=== PATIENT | female | born 1990 | race Caucasian/White ===

== ENCOUNTER 2018-01-09 15:45 | Emergency (ER) | payer BC ==
[2018-01-09 16:43] VITALS: BP 111/66
--- NOTE | 2018-01-09 17:59 | UC ---
Respiratory Complaint HPI - HPI Summary HPI Summary: Per medicine assistant "Dry cough for 2-3 days, body aches; temp 100 today, CP worsens with cough" -she is here w/ her BF Trung + h/o PEs during . lovenox dc'd 2013. -she insists that this has nothing to do w/ having PE. sx are completely different. she reports she has no chest pain at rest or even with deep breath, only with deep cough. + h/o childhood asthma. no fevers. no chills. + stuffy nose, nasal congestion. would not have come in if it were not for these severe coughing. -She has copper IUD, denies . just had period -denies any swelling in legs. no recent surgery or long trips. 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 "I promise you, it's not a blood clot" - History of Current Complaint Chief Complaint: UCRespiratory Stated Complaint: COUGH/FEVER Time Seen by Provider: 01/09/18 17:56 Hx Last Menstrual Period: 01/06/18 Pain Intensity: 5 - Allergies/Home Medications Allergies/Adverse Reactions: Allergies Allergy/AdvReac Type Severity Reaction Status Date / Time No Known Allergies Allergy Verified 01/09/18 16:43 Home Medications: Home Medications Chlorphenir/Phenyleph/Aspirin [Tereza-Stigler Plus Cold Tab Eff] 2 tab PO Q4H PRN 01/09/18 [History Confirmed 01/09/18] Ibuprofen TAB* [Motrin TAB* 400 MG] 400 mg PO ONCE PRN 01/09/18 [History Confirmed 01/09/18] PMH/Surg Hx/FS Hx/Imm Hx Previously Healthy: Yes - Surgical History Surgical History: Yes Surgery Procedure, Year, and Place: appy, tonsils; blood clots in lungs related to 2012- pt stopped lovenox 2013 - Family History Known Family History: Positive: Other - no FHx DVTs/PEs or genetic predisposition - Social History Alcohol Use: Occasionally Substance Use Type: None Smoking Status (MU): Light Every Day Tobacco Smoker Review of Systems Constitutional: Negative Skin: Negative Eyes: Negative ENT: Negative Respiratory: Negative Cardiovascular: Negative Gastrointestinal: Negative Genitourinary: Negative Motor: Negative Neurovascular: Negative Musculoskeletal: Negative Neurological: Negative Psychological: Negative Is Patient Immunocompromised?: No All Other Systems Reviewed And Are Negative: Yes Physical Exam Triage Information Reviewed: Yes Appearance: Ill-Appearing - mild-moderate. + signfiicant nasal congestion. Vital Signs: Initial Vital Signs Temp 98.7 F 01/09/18 16:31 Pulse 84 01/09/18 16:31 Resp 18 01/09/18 16:31 BP 111/66 01/09/18 16:31 Pulse Ox 99 01/09/18 16:31 Eye Exam: Normal Eyes: Positive: Conjunctiva Clear ENT: Positive: Pharyngeal erythema - mild w/ + PND, no exudate., Nasal congestion, Nasal drainage, TMs normal, Hoarse voice. Negative: Sinus tenderness Dental Exam: Normal Neck exam: Normal Neck: Positive: Supple, Nontender, No Lymphadenopathy Respiratory: Positive: Lungs clear, Normal breath sounds, No respiratory distress, No accessory muscle use, Decreased breath sounds, Other: - s/p neb, increased breath sounds and no cough induced w/ deep breath. Negative: Crackles , Rhonchi, Stridor, Wheezing Cardiovascular: Positive: RRR, No Murmur, Pulses Normal Abdomen Description: Positive: Nontender, Soft Musculoskeletal Exam: Normal Musculoskeletal: Positive: Other: - no leg swelling or erythema Neurological Exam: Normal Psychological Exam: Normal Skin Exam: Normal UC Diagnostic Evaluation - Laboratory O2 Sat by Pulse Oximetry: 99 Respiratory Course/Dx - Course Course Of Treatment: albuterol neb done here provides significant relief in breathing and cough. she reporst no chest pain w/ deep cough s/p neb. -EKG - NSR, no s1 Q3, inv T 3 pattern - Differential Dx/Diagnosis Differential Diagnosis/HQI/PQRI: Asthma, Bronchitis, Laryngitis, Lower Resp Infection, Sinusitis Provider Diagnoses: Bronchitis Discharge - Sign-Out/Discharge Documenting (check all that apply): Patient Departure All imaging exams completed and their final reports reviewed: No - Discharge Plan Condition: Stable Disposition: HOME Prescriptions: Albuterol HFA INHALER* [Ventolin HFA Inhaler*] 2 puff INH Q4H PRN 14 Days #1 mdi PRN Reason: Cough methylPREDNISolone [Medrol Dosepak 4 MG*] 4 mg PO DAILY #1 perri Spacer/Holding Chamber (NF) [Easivent CHAMBER (NF)] 1 unit INH Q4HR 14 Days #1 device Patient Education Materials: Acute Bronchitis (ED) Referrals: No Primary Care Phys,NOPCP [Primary Care Provider] - Additional Instructions: Follow up with your PCP in 5 days at [facility]. -We discussed risks of prednisone including but not limited to anxiety, agitation, insomnia, GI upset, elevated blood pressures and blood sugar readings , adrenal crisis and avascular necrosis of the hip. -You should go to the ER with worsening pain, shortness of breath or swelling in your legs - Billing Disposition and Condition Condition: STABLE Disposition: Home
[2018-01-09] MEDS: Albuterol 2.5 MG/3 ML NEB.SOL* (0.083%) INH ONE (18:10)
--- NOTE | 2018-01-10 13:41 | UC ---
Discharge - Sign-Out/Discharge Documenting (check all that apply): Post-Discharge Follow Up All imaging exams completed and their final reports reviewed: No Studies - Discharge Plan Condition: Stable Disposition: HOME Prescriptions: Albuterol HFA INHALER* [Ventolin HFA Inhaler*] 2 puff INH Q4H PRN 14 Days #1 mdi PRN Reason: Cough methylPREDNISolone [Medrol Dosepak 4 MG*] 4 mg PO DAILY #1 perri Spacer/Holding Chamber (NF) [Easivent CHAMBER (NF)] 1 unit INH Q4HR 14 Days #1 device Patient Education Materials: Acute Bronchitis (ED) Referrals: No Primary Care Phys,NOPCP [Primary Care Provider] - Additional Instructions: Follow up with your PCP in 5 days at [facility]. -We discussed risks of prednisone including but not limited to anxiety, agitation, insomnia, GI upset, elevated blood pressures and blood sugar readings , adrenal crisis and avascular necrosis of the hip. -You should go to the ER with worsening pain, shortness of breath or swelling in your legs - Billing Disposition and Condition Condition: STABLE Disposition: Home
== END 2018-01-09 18:37 | disposition home or self-care (01) ==
LOC: UCCORT 15:45
DX: J40 Bronchitis, not specified as acute or chronic (principal); F17.210 Nicotine dependence, cigarettes, uncomplicated
CPT/HCPCS: 93005; 99202; G0463

== ENCOUNTER 2019-04-02 20:24 | Emergency (ER) | payer SELFPAY ==
[2019-04-02 20:40] VITALS: BP 120/68
--- NOTE | 2019-04-02 20:57 | UC ---
Cardiac HPI - HPI Summary HPI Summary: Pt presents with c/o right side mid medial scapular pain that began 1 day ago. Pt denies injury or overuse. Pt also reports that last night she woke from sleep with epigastric pain that pt described a a"gas bubble". Pt reports that she woke from sleep then drank a glass of water, rested calmly and then pain resolved. Pt has hx of PE's that occurred during 5 years ago. 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 Pt denies chest pain at time of PE, denies SOB, denies difficulty breathing, nausea , vomiting or left arm pain. - History of Current Complaint Chief Complaint: UCUpperExtremity Stated Complaint: RIGHT SHOULDER PAIN Time Seen by Provider: 04/02/19 20:33 Hx Obtained From: Patient Hx Last Menstrual Period: copper IUD; 03/03/19 Onset/Duration: Sudden Onset - epigastric pain, Gradual Onset - right shoulder mid back scapular pain Timing: Constant - right upper back Initial Severity: Mild Current Severity: Mild Pain Intensity: 5 Chest Pain Location: Lower Sternal Character: Burning Aggravating Factor(s): Nothing Alleviating Factor(s): Rest, Other - drank water Associated Signs & Symptoms: Positive: Back Pain, Abdominal Pain - Risk Factors Pulmonary Embolism Risk Factors: Previous PE Cardiac Risk Factors: Negative Atrial Fibrillation: Negative TAD Risk Factors: Negative - Allergy/Home Medications Allergies/Adverse Reactions: Allergies Allergy/AdvReac Type Severity Reaction Status Date / Time No Known Allergies Allergy Verified 04/02/19 20:34 Home Medications: Home Medications Copper (Iud) [Paragard IUD] 1 implant ONCE 04/02/19 [History Confirmed 04/02/19] PMH/Surg Hx/FS Hx/Imm Hx Previously Healthy: Yes - Surgical History Surgical History: Yes Surgery Procedure, Year, and Place: appy, tonsils; blood clots in lungs related to 2012- pt stopped lovenox 2013 - Family History Known Family History: Positive: Other - no FHx DVTs/PEs or genetic predisposition past FMH of cholecystitis - Social History Occupation: Employed Full-time Lives: With Family Alcohol Use: Occasionally Substance Use Type: None Smoking Status (MU): Light Every Day Tobacco Smoker Type: Cigarettes Amount Used/How Often: 1-2 cigs/day Have You Smoked in the Last Year: Yes - Immunization History Vaccination Up to Date: Yes Review of Systems All Other Systems Reviewed And Are Negative: Yes Constitutional: Positive: Negative Skin: Positive: Negative Eyes: Positive: Negative ENT: Positive: Negative Respiratory: Positive: Negative Cardiovascular: Positive: Chest Pain Gastrointestinal: Positive: Abdominal Pain Genitourinary: Positive: Negative Motor: Positive: Negative Neurovascular: Positive: Negative Musculoskeletal: Positive: Negative Neurological: Positive: Negative Psychological: Positive: Negative Is Patient Immunocompromised?: No Physical Exam Triage Information Reviewed: Yes Appearance: Well-Appearing Vital Signs: Initial Vital Signs Temp 98.4 F 04/02/19 20:35 Pulse 75 04/02/19 20:35 Resp 16 04/02/19 20:35 BP 120/68 04/02/19 20:35 Pulse Ox 100 04/02/19 20:35 Vital Signs Reviewed: Yes Eye Exam: Normal ENT Exam: Normal Dental Exam: Normal Respiratory Exam: Normal Respiratory: Positive: Lungs clear, Normal breath sounds, No respiratory distress, No accessory muscle use, Other: - reproducible pain right upper chest wall. Cardiovascular Exam: Normal Cardiovascular: Positive: RRR, No Murmur Abdomen Description: Positive: Other: - RUQ tenderness/mild discomfort Bowel Sounds: Positive: Present Musculoskeletal Exam: Other - trigger point tenderness right mid medial scapula Neurological Exam: Normal Psychological Exam: Normal Skin Exam: Normal - Assessment/Plan Course Of Treatment: I discussed with the pt the need to f/u with PCP and monitor for any worsening of symptoms. Pt verbalized understanding and agreed to plan of care. - Differential Diagnoses - Chest Pain Differential Diagnosis/HQI/PQRI: Acute MN, Angina, Pulmonary Embolism - Differential Diagnoses - Palpitations Differential Diagnosis/HQI/PQRI: Pulmonary Embolism, Other - gall bladder disease - Clinical Impression Provider Diagnosis: Upper back pain on right side, Trigger point of shoulder region, Right upper quadrant abdominal pain, Right-sided chest wall pain Discharge ED - Sign-Out/Discharge Documenting (check all that apply): Patient Departure All imaging exams completed and their final reports reviewed: No Studies - Discharge Plan Condition: Stable Disposition: HOME Patient Education Materials: Acute Abdominal Pain (ED), Trigger Point Pain (ED) Referrals: Tahira Walsh MD [Primary Care Provider] - If Needed Additional Instructions: Please follow up with your PCP as needed. If your symptoms do not improve or they worsen please seek care at the closest emergency room as soon as possible. - Billing Disposition and Condition Condition: STABLE Disposition: Home - Attestation Statements Provider Attestation: I was available for consult. This patient was seen by the ANGEL. The patient was not presented to, seen by, or examined by me. -Amanda
== END 2019-04-02 21:10 | disposition home or self-care (01) ==
LOC: UCCORT 20:24
DX: M25.511 Pain in right shoulder (principal); M54.89 Other dorsalgia; R10.11 Right upper quadrant pain; R07.89 Other chest pain; F17.210 Nicotine dependence, cigarettes, uncomplicated
CPT/HCPCS: 99211; G0463

== ENCOUNTER 2019-04-04 12:52 | Emergency (ER) | payer SELFPAY ==
[2019-04-04 13:29] VITALS: BP 113/68
--- NOTE | 2019-04-04 13:41 | UC ---
Skin Complaint HPI - HPI Summary HPI Summary: Pt presents with c/o painful rash on right side of chest, axilla, and mid back. Pt was seen here on 04/02/19 for upper back and chest pain. Pt states that pain persisted and rash began 1-2 days after she was seen here. Pt has pmh of chicken pox. Pt states rash is painful, is burning and has blisters forming - History of Current Complaint Stated Complaint: RASH (? SHINGLES) Hx Obtained From: Patient Hx Last Menstrual Period: last month ?: No Onset/Duration: Gradual Onset, Lasting Days, Still Present, Worse Since - onset Skin Exposure Onset/Duration: Days Ago Timing: Constant Onset Severity: Mild Current Severity: Severe Pain Intensity: 9 Location: Discrete Character: Redness, Raised, Painful Aggravating Factor(s): Touch Alleviating Factor(s): Nothing Associated Signs & Symptoms: Positive: Rash - Allergy/Home Medications Allergies/Adverse Reactions: Allergies Allergy/AdvReac Type Severity Reaction Status Date / Time No Known Allergies Allergy Verified 04/04/19 13:21 Home Medications: Home Medications Aspirin TAB* [Aspirin 325 MG TAB*] 325 mg PO DAILY PRN 04/04/19 [History Confirmed 04/04/19] PMH/Surg Hx/FS Hx/Imm Hx Previously Healthy: Yes - Surgical History Surgical History: Yes Surgery Procedure, Year, and Place: appy, tonsils; blood clots in lungs related to 2012- pt stopped lovenox 2013 - Family History Known Family History: Positive: Other - no FHx DVTs/PEs or genetic predisposition past FMH of cholecystitis - Social History Occupation: Employed Full-time Lives: With Family Alcohol Use: Occasionally Substance Use Type: None Smoking Status (MU): Light Every Day Tobacco Smoker Type: Cigarettes Amount Used/How Often: 1-2 cigs/day Have You Smoked in the Last Year: Yes - Immunization History Vaccination Up to Date: Yes Review of Systems All Other Systems Reviewed And Are Negative: Yes Constitutional: Positive: Negative Skin: Positive: Rash - painful blistered rash Eyes: Positive: Negative ENT: Positive: Negative Respiratory: Positive: Negative Cardiovascular: Positive: Negative Gastrointestinal: Positive: Negative Genitourinary: Positive: Negative Motor: Positive: Negative Neurovascular: Positive: Negative Musculoskeletal: Positive: Negative Neurological: Positive: Negative Psychological: Positive: Negative Is Patient Immunocompromised?: No Physical Exam Triage Information Reviewed: Yes Appearance: Pain Distress - with PE of rash Vital Signs: Initial Vital Signs Temp 98.3 F 04/04/19 13:22 Pulse 74 04/04/19 13:22 Resp 16 04/04/19 13:22 BP 113/68 04/04/19 13:22 Pulse Ox 99 04/04/19 13:22 Vital Signs Reviewed: Yes Eye Exam: Normal ENT Exam: Normal Dental Exam: Normal Neck exam: Normal Respiratory: Positive: No respiratory distress Musculoskeletal Exam: Normal Neurological Exam: Normal Psychological Exam: Normal Skin: Positive: Rashes - blistered, erythematous rash right side mid back, right axilla, and right side of medial breast Course/Dx - Differential Diagnoses - Skin Complaint Differential Diagnoses: Cellulitis, Impetigo, Varicella Zoster - Diagnoses Provider Diagnosis: Shingles rash Discharge ED - Sign-Out/Discharge Documenting (check all that apply): Patient Departure All imaging exams completed and their final reports reviewed: No Studies - Discharge Plan Condition: Stable Disposition: HOME Prescriptions: predniSONE TAB* [Deltasone 10 MG TAB*] 30 mg PO DAILY #12 tab ValACYclovir (*) [Valtrex 1 GM(*)] 1 gm PO Q12H #14 tab Patient Education Materials: Shingles (ED) Referrals: Tahira Walsh MD [Primary Care Provider] - If Needed - Billing Disposition and Condition Condition: STABLE Disposition: Home
== END 2019-04-04 13:52 | disposition home or self-care (01) ==
LOC: UCCORT 12:52
DX: B02.9 Zoster without complications (principal); F17.210 Nicotine dependence, cigarettes, uncomplicated
CPT/HCPCS: 99212; G0463